=== PATIENT | female | born 1960 | race Caucasian/White ===

== ENCOUNTER 2020-07-27 15:18 | Outpatient (CLI) | payer OTHER | END 2020-07-27 15:19 | disposition home or self-care (01) | LOC: CSHMRI 15:18 | PROVIDERS: ATTEND Orthopaedic Surgery | DX: S83.241A Other tear of medial meniscus, current injury, right knee, initial encounter (principal); S83.271A Complex tear of lateral meniscus, current injury, right knee, initial encounter; M17.11 Unilateral primary osteoarthritis, right knee; M71.21 Synovial cyst of popliteal space [Baker], right knee; M23.321 Other meniscus derangements, posterior horn of medial meniscus, right knee ==

== ENCOUNTER 2025-05-03 12:12 | Emergency (ER) | payer OTHER | END 2025-05-03 14:35 | disposition home or self-care (01) | LOC: CSHERS 12:12 | DX: S62.617A Displaced fracture of proximal phalanx of left little finger, initial encounter for closed fracture (principal); I48.91 Unspecified atrial fibrillation; Z95.0 Presence of cardiac pacemaker; W19.XXXA Unspecified fall, initial encounter | CPT/HCPCS: 29125; 99283 ==